=== PATIENT | female | born 1975 | race Caucasian/White ===

== ENCOUNTER → 2021-09-03 14:02 | Outpatient (CLI) | payer OTHER, SELFPAY ==
[2021-09-03 16:24] LABS: Probe Check PASS; Specimen Processing Control PASS
== END ==
PROVIDERS: Referring Provider Student in an Organized Health Care Education/Training Program; Visit Provider Student in an Organized Health Care Education/Training Program
DX: Z11.59 Encounter for screening for other viral diseases (principal)
CPT/HCPCS: 87635; C9803; U0005; U0003

== ENCOUNTER 2023-08-09 15:41 | Observation (INO) | payer OTHER, SELFPAY ==
[2023-08-09] VITALS (7 sets, daily range): BP systolic 111–130; BP diastolic 84–94; PULSE 55–67; RESP 11–18; TEMP 36.4–36.7; O2SAT 94–100; BMI 19.6; BMI 19.8
--- NOTE | 2023-08-09 15:46 | EKG12_ITS ---
Test Reason : CP Blood Pressure : / mmHG Vent. Rate : 052 BPM Atrial Rate : 052 BPM P-R Int : 200 ms QRS Dur : 084 ms QT Int : 444 ms P-R-T Axes : 061 -03 016 degrees QTc Int : 412 ms Sinus bradycardia Possible Left atrial enlargement Borderline ECG Confirmed by NIRMALA RUSHING, ROLANDO ([id number]), manuscript editor ARNAUD AUSTIN ([id number]) on 08/18/2023 10:01:48 AM Referred By: AR/RU Confirmed By:ROLANDO SILVESTRE MD
--- NOTE | 2023-08-09 16:00 | RAD_ITS ---
STUDY: X-RAY CHEST REASON FOR EXAM: Female, 48 years old. chest pain TECHNIQUE: Single frontal view of the chest. COMPARISON: None. FINDINGS: Lungs are hyperaerated. Calcified granuloma left lower lobe. The lungs are clear and expanded. There is no demonstrated pleural abnormality. Normal size heart. Normal mediastinum and lala. Normal visualized pulmonary arteries. Normal visualized aortic arch and descending thoracic aorta. Normal visualized thoracic spine. Normal visualized ribs, clavicles, and shoulders. There is no demonstrated abnormality of the visualized soft tissue structures of the upper abdomen. RAD/Chest 1 View (Portable) IMPRESSION: Small airways disease. Electronically Signed: Hermes Dunn MD at 16:47 EST ,
--- NOTE | 2023-08-09 16:03 | EDS_ITS ---
HPI History of Present Illness Chief Complaint: Chest Pain Detail of Chief Complaint: Chest pain Informant: patient and spouse/S.O. Narrative Narrative: Patient presents the emergency department with complaint of chest discomfort that started around 2 PM. 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 Pain initially was intermittent and would last a few minutes at a time. She then had an episode that lasted about 40 minutes and she came in for evaluation. She is currently pain-free. She is never had discomfort like this before. She denies recent travel or surgery. She has no medical history. There is no family history of heart disease. She does not smoke. Denies illicit drug use. Patient denies recent illness. [facility] Medical History (Updated 08/09/23 @ 17:[address] Opal Ellison, DO) Breast cancer Home Medications NK 08/09/23 [History Last Taken Unknown] Allergy/AdvReac Type Severity Reaction Status Date / Time No Known Allergies Allergy Verified 08/09/23 15:44 Surgical History (Updated 08/09/23 @ 16:07 by Radha Desai) History of right mastectomy Social History Smoking Status: Never smoker ROS ROS ED Review of Systems ROS Unobtainable: other Constitutional Constitutional ED: Reports lethargy; Denies chills, fever(s), sweats or weight loss Eyes Eyes: Denies blurry vision, change in vision or diplopia ENT ENT ED: Denies rhinorrhea or sore throat Cardiovascular Cardiovascular: Reports chest pain; Denies orthopnea or racing heartbeat Respiratory/Chest Respiratory/Chest: Denies cough, dyspnea, dyspnea on exertion, orthopnea or sputum Gastrointestinal Gastrointestinal: Denies abdominal pain, diarrhea, nausea or vomiting Genitourinary Genitourinary ED: Denies dysuria, hematuria or urinary frequency Musculoskeletal Musculoskeletal: Denies arthralgias, back pain, myalgias or neck pain Integumentary Denies abscess, Abrasions or rash Neurologic Neurologic: Denies headache(s) or weakness Psychiatric Psychiatric: Denies anxiety, depression or suicidal thoughts Endocrine Endocrinology: Denies polydipsia, polyphagia or polyuria Hematologic/Lymphatic Hematologic/Lymphatic: Denies easy bleeding, easy bruising or lymphadenopathy Allergic/Immunologic Allergic/Immunologic ED: Denies mouth swelling, tongue swelling or urticaria EXAM Physical Exam Const Vital Signs: 08/09/23 15:44 Temperature 97.6 F L Temperature Source Temporal Pulse Rate 58 L Respiratory Rate 18 Blood Pressure 111/84 H Blood Pressure Mean 93 Pulse Ox 100 Oxygen Delivery Method Room Air Positive well nourished and well developed General Appearance ED: well developed and NAD HEENT Reports TM's clear and moist mucous membranes normocephalic and atraumatic; Negative for trauma or tenderness Tympanic Membrane ED: Yes TM's clear Eyes PERRL and EOMs intact bilaterally General Eye ED: Negative for pale conjunctiva or scleral icterus Neck no lymphadenopathy, supple and no JVD General: Negative for tenderness Chest Wall inspection of chest normal and palpation of chest normal Chest: Negative for tenderness Resp normal respiratory effort and clear to auscultation bilaterally Effort and Inspection: Negative for respiratory distress or pain with movement Auscultation: Negative for rhonchi, wheezes or diminished lung sounds Cardio regular rate, regular rhythm, S1 normal heart sound, S2 normal heart sound and no murmurs Peripheral Pulses: pulses 2+ throughout GI normal to inspection, nondistended, normoactive bowel sounds, soft to palpation, non-tender, non-distended and no masses Back/Spine no CVA tenderness and no thoracic nor lumbar tenderness Extremity normal to inspection General Extremety ED: Negative for edema General Extremity: Negative for edema Neuro oriented x3, CN's II-XII intact bilaterally, no sensory deficits noted and gait normal Sensorium / Orientation: awake, alert, oriented to person, oriented to place and oriented to time Motor Exam: strength 5/5 throughout and strength abnormal Psych mental status grossly normal Skin no rashes or lesions noted and no wounds Heart Score History: Moderately Suspicious ECG: Nonspecific Repolarization Age: >45 - <65 years Risk Factors: No Risk Factors Troponin: >1 - <3 Normal Limit Score: 4 MDM MDM MDM Narrative Medical decision making narrative: Patient presenting with chest pain that is now resolved. In the differential would be PE versus acute coronary syndrome versus chest wall pain or GI cause such as GERD. IV line established. EKG obtained arrival showed sinus bradycardia with a rate of 52 bpm with left atrial enlargement. CBC with differential was unremarkable. Chemistries unremarkable. Troponin was elevated at 169. Patient had taken aspirin at home therefore none was given here. Patient states she took 4 baby aspirin at home. Patient was started on a heparin drip. Case will be discussed with hospitalist to evaluate patient for admission. Radiography Diagnostic Testin view chest x-ray obtained interpreted by myself as no evidence of a infiltrate or pneumothorax or acute disease process. Radiology in agreement. EKG Initial EKG: Attestation: I personally reviewed and interpreted this EKG as follows: Comments: Sinus bradycardia with a rate of 52 bpm with left atrial enlargement Discharge Plan Triage Chief Complaint: Chest Pain ED Provider: Opal Ellison Dx/Rx/DC Orders Clinical Impression: Non-ST elevated myocardial infarction (non-STEMI), Chest pain Prescriptions: No Action NK Primary Care Provider: Mouna Hooks Referrals: Mouna Hooks MD [Primary Care Provider] - Disposition Disposition: Acute Care Hospital [facility]
[2023-08-09] MEDS: 0.9% Normal Saline (1000mL) 1,000 ML 150 ML IV (16:18)
[2023-08-09 16:24] LABS: Absolute Lymphocyte Count 1.55 X10^3/uL (0.83-4.51); Absolute Neutrophil Count 3.9 X10^3/uL (2.0-7.7); Basophil# 0.02 X10^3/uL; Basophil% 0.3 % (0-1); Eosinophil# 0.11 X10^3/uL; Eosinophils% 1.8 % (0-5); Hematocrit 39.9 % (37-47); Lymphocyte # 1.55 X10^3/ul (0.83-4.51); Mean Corp Hgb Conc 32.6 g/dL (32-36); Mean Corpuscular Hgb 31.1 pg (27.0-32.0); Mean Corpuscular Volume 95.5 fL (81-99); Mean Platelet Vol. 10.1 fl (6.2-12.0); Monocyte# 0.34 X10^3/uL; Monocyte% 5.7 % (0-10); NRBC Flagged by Analyzer 0 % (0-5); Neutrophil # 3.93 X10^3/uL (2.7-7.7); Neutrophil % 65.9 % (47-70); Platelet Count 217 K/mm3 (150-450); RBC Distribution Width CV 13.6 % (11.6-14.6); RBC Distribution Width SD 48.4 fl (35.1-43.9); Red Blood Count 4.18 M/mm3 (4.2-5.4)
[2023-08-09 16:37] LABS: D-Dimer Quantitative (DVT/PE) 0.42 FEU/ug/m (0.27-0.49)
[2023-08-09 16:52] LABS: Anion Gap 7 (5-15); BUN 23 mg/dL (7-18); BUN/Creat Ratio 28.4 RATIO (10-20); Calcium,Total 9.2 mg/dL (8.5-10.1); Chloride 105 mmol/L (98-107); Creatinine, Serum 0.81 mg/dL (0.55-1.02); EST Glomerular Filtration Rate 79 mL/min (>60); Est Glom Filt Rate - Afr Amer 96 mL/min (>60); Estimated Creatinine Clearance 72.53 ml/min; Glucose 142 mg/dL (74-106); Potassium 3.7 mmol/L (3.5-5.1); Sodium Level 141 mmol/L (136-145); Troponin-I HS (w/2H Reflex) 169 pg/mL (3.0-54.0)
--- NOTE | 2023-08-09 17:11 | PCM.HP.STD ---
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 She denies having any episodes similar to this previously. Patient does admit to notably recent increased stress. She notes that the discomfort was more heaviness, pressure-like in sensation as well as aching and at its worst rated it 7 out of 10 in severity, currently completely resolved. She denies any associated dyspnea, nausea, diaphoresis with this episode. Work-up in the ED included T97.6, heart rate initially 58 with most recent repeat 61, BP 111/84, respiratory rate 18, 100% on room air, CBC with WBC 6.0, hemoglobin 13, platelet 217 without marked shift, D-dimer 0.42, BMP with BUN/creatinine 23/0.81, glucose 142, troponin 169, chest x-ray with evidence of chronic small airway disease otherwise no acute cardiopulmonary findings, EKG with sinus bradycardia with no acute evidence of ischemia. In the ED patient ministered normal saline as well as heparin drip. She noted taking 4 chewable baby aspirins at home. [facility] Medical History (Updated 08/09/23 @ 19:[address] Erica Gonzalez MD) Invasive ductal carcinoma of right breast Home Medications NK 08/09/23 [History Last Taken Unknown] Allergy/AdvReac Type Severity Reaction Status Date / Time No Known Allergies Allergy Verified 08/09/23 15:44 Family History (Updated 08/09/23 @ 19:[address] Erica Gonzalez MD) Mother Hypertension Father Heart disease Hypertension Diabetes Heart failure Family History no significant family his Surgical History (Updated 08/09/23 @ 19:[address] Erica Gonzalez MD) History of right mastectomy Status post bilateral foot surgery Social History (Updated 08/09/23 @ 19:[address] Erica Gonzalez MD) household members: spouse Smoking Status: Never smoker alcohol intake: never substance use type: does not use ROS ROS Narrative Admission Review of Systems: CONSTITUTIONAL: No weight loss, fever, chills, + weakness or fatigue. HEENT: Eyes: No visual loss, blurred vision, double vision or yellow sclerae. Ears, Nose, Throat: No hearing loss, sneezing, congestion, runny nose or sore throat. SKIN: No rash or itching, lesions, wounds. CARDIOVASCULAR: No + chest pain, chest pressure or chest discomfort. No palpitations, edema, orthopnea, syncopal events. RESPIRATORY: No shortness of breath, cough or sputum, wheezing, hemoptysis. GASTROINTESTINAL: No anorexia, nausea, vomiting or diarrhea, abdominal pain, melena, BRBPR. GENITOURINARY: No dysuria, frequency, urgency or retention. NEUROLOGICAL: No headache, dizziness, syncope, paralysis, ataxia, numbness or tingling in the extremities, focal weakness, change in bowel or bladder control, seizure. MUSCULOSKELETAL: + muscle, back pain, joint pain or stiffness. HEMATOLOGIC: No anemia, bleeding or bruising. LYMPHATICS: No enlarged nodes. No history of splenectomy. PSYCHIATRIC: No history of depression or anxiety. ENDOCRINOLOGIC: No reports of sweating, cold or heat intolerance. No polyuria or polydipsia. ALLERGIES: No history of asthma, hives, eczema or rhinitis. Vital Signs Vital Signs Vital Signs: 08/09/23 15:44 08/09/23 16:05 08/09/23 16:05 Temperature 97.6 F L Temperature Source Temporal Pulse Rate 58 L Respiratory Rate 18 Respiratory Effort Blood Pressure 111/84 H Blood Pressure Mean 93 Pulse Ox 100 100 100 Oxygen Delivery Method Room Air Room Air Room Air 08/09/23 16:06 08/09/23 16:08 Temperature Temperature Source Pulse Rate 61 Respiratory Rate 11 L Respiratory Effort Normal Non-Labored Blood Pressure Blood Pressure Mean Pulse Ox 100 Oxygen Delivery Method Room Air Weight Weight: 121 lb 14.4 oz Body Mass Index (BMI) 19.6 Physical Exam Narrative Physical Examination: General: Awake, alert, oriented x 3 and cooperative, seated upright in the ED bed in no apparent distress, tearful with discussions but otherwise calm. Skin: Normal color, normal turgor, no icterus, no cyanosis. HEENT: AT/NC, EOMI, PERRLA, MMM, no carotid bruits or JVD noted. Lungs: CTA bilaterally, moderate effort, mild decrease BL bases, no rales, ronchi or wheezing. Heart: Mildly bradycardic with regular rhythm; no gallop, rub audible. Abdomen: Soft, NTTP, ND, distant normal BS, no HSM. Extremities: No cyanosis, clubbing, or edema. Neurological: Patient awake, alert, oriented as noted, cognitive function intact; pupils equally reactive to light and accommodation, cranial nerves II-XII grossly normal, moving all 4 extremities, no focal deficits, strength preserved. Psychiatric: Affect appears mildly anxious, tearful with discussions but appropriate, no history of anxiety or depression but she has been under a lot of stress. Results Lab / Micro Data 08/09/23 16:09 08/09/23 16:09 Labs: Laboratory Results - last 24 hr 08/09/23 16:09: WBC 6.0, RBC 4.18 L, Hgb 13.0, Hct 39.9, MCV 95.5, MCH 31.1, MCHC 32.6, RDW Std Deviation 48.4 H, RDW Coeff of Ken 13.6, Plt Count 217, MPV 10.1, Immature Gran % (Auto) 0.300, Neut % (Auto) 65.9, Lymph % (Auto) 26.0, [place] % (Auto) 5.7, Eos % (Auto) 1.8, Baso % (Auto) 0.3, Absolute Neuts (auto) 3.9, Absolute Lymphs (auto) 1.55, Nucleated RBC % 0, D-Dimer Quant (PE/DVT) 0.42, Sodium 141, Potassium 3.7, Chloride 105, Carbon Dioxide 29.0, Anion Gap 7, BUN 23 H, Creatinine 0.81, Estim Creat Clear Calc 72.53, Est GFR (MDRD) Af Amer 96, Est GFR (MDRD) Non-Af 79, BUN/Creatinine Ratio 28.4 H, Glucose 142 H, Calcium 9.2, Troponin I High Sens 169 H* Radiology Impression Chest X-Ray 08/09/23 16:00 IMPRESSION: Small airways disease. 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 #1. Chest Pain w/ acutely elevated troponin concerning for NSTEMI, unclear type: EKG in ED w/ sinus bradycardia with no acute evidence of ischemia, CXR w/ no acute cardiopulmonary findings with chronic changes of small airway disease. Trop elevated, 169. Will admit to PCU, maintain on a monitored bed, continue serial cardiac enzymes and EKGs. Obtain magnesium level upon admission. We will continue heparin drip. AM FLP. ECHO requested. Cardiology consulted, plan for cardiac catheterization. Maintain NPO after midnight. ASA, NG, morphine. #2. Hyperglycemia, mild: Admission glucose 142, likely stress response, will obtain hemoglobin A1c be cautious. #3. Elevated BP without hypertensive diagnosis: Patient with elevated diastolic blood pressure, no history, will continue closely monitor, add regimen if appropriate especially given #1. #4. History of breast cancer, invasive ductal carcinoma: Diagnosed 07/2020, status post chemotherapy as well as right mastectomy, considered in remission, of note to be cautious dimer was obtained in the ED and unremarkable. #5. DVT prophylaxis: We will continue heparin drip initiated in the ED. Charges/Coding Visit Charges Inpatient E&M: 42282 Init Hosp L3
[2023-08-09] MEDS: Heparin Injection (Vial) 5,000 UNIT/ML VIAL 4000 UNIT IV (17:14)
[2023-08-09] MEDS: HEPARIN/D5w 25,000 UNITS 25,000 UNITS/250 ML IV.SOLN. 8 UNITS CONT INF (17:16)
[2023-08-09 17:27] LABS: Partial Thromboplast Time 24.9 Seconds (24.1-36.2); Prothrombin Time (Protime)PT. 13.1 SECONDS (11.7-14.9)
--- NOTE | 2023-08-09 17:35 | ED.RN ---
PRIOR TO PT BEING TAKEN TO FLOOR. PT HEPARIN INFUSING AT 8ML/HR. IV PATENT/PINK. NO S/S OF INFILTRATION. PT DENIES PAIN AT IV SITE.
--- NOTE | 2023-08-09 17:56 | EKG12_ITS ---
Test Reason : AM EKG Blood Pressure : / mmHG Vent. Rate : 056 BPM Atrial Rate : 056 BPM P-R Int : 200 ms QRS Dur : 092 ms QT Int : 462 ms P-R-T Axes : 070 016 -52 degrees QTc Int : 445 ms Sinus bradycardia Minimal voltage criteria for LVH, may be normal variant ( Bogdan product ) T wave abnormality, consider inferolateral ischemia Abnormal ECG When compared with ECG of 09-AUG-2023 17:58, MANUAL COMPARISON REQUIRED, DATA IS UNCONFIRMED Confirmed by NIRMALA RUSHING, ROLANDO ([id number]), publishing editor ARNAUD AUSTIN ([id number]) on 08/18/2023 1:06:16 PM Referred By: Confirmed By:ROLANDO SILVESTRE MD
--- NOTE | 2023-08-09 17:56 | ECHOD_ITS ---
Reason For Study: CAD/ASHD Procedure This was a 2D Doppler, Color Flow transthoracic echocardiogram. The study was technically difficult. Exam performed portable in patient room. Left Ventricle Normal left ventricle. The estimated ejection fraction is 40-45 %. Right Ventricle Normal right ventricle. The right ventricle is normal in size, function, and thickness. Atria Normal left atrium. Normal right atrium. Mitral Valve The mitral valve is structurally normal. No prolapse or stenosis seen. No mitral valve insufficiency. Tricuspid Valve Normal tricuspid valve. Aortic Valve Normal aortic valve. Trivial aortic valve insufficiency. Pulmonic Valve The pulmonic valve is not well visualized. Great Vessels Normal aortic root. Pericardium/Pleural No pericardial effusion. MMode/2D Measurements & Calculations LVIDd: 4.7 cm IVSd: 0.81 cm Ao root diam: 3.0 cm LVIDs: 3.2 cm LVPWd: 0.81 cm LA dimension: 3.2 cm FS: 32.6 % LAV(MOD-bp): 46.2 ml LVAd ap4: 29.8 cm2 SV(MOD-sp4): 44.3 ml LAV(MOD-bp) Indexed: 28.4 ml/m2 LVLd ap4: 7.6 cm LAV(MOD-sp2): 40.8 ml EDV(MOD-sp4): 97.5 ml LAV(MOD-sp4): 52.6 ml EDV(sp4-el): 99.2 ml LVAs ap4: 20.5 cm2 LVLs ap4: 6.5 cm ESV(MOD-sp4): 53.2 ml ESV(sp4-el): 54.9 ml EF(MOD-sp4): 45.5 % EF(sp4-el): 44.6 % SV(sp4-el): 44.3 ml LA A4 area: 18.7 cm2 Time Measurements MV dec time: 0.20 sec Doppler Measurements & Calculations MV E max daren: 70.0 cm/sec Lat Peak E' Daren: 9.9 cm/sec Med Peak E' Daren: 9.4 cm/sec MV A max daren: 89.1 cm/sec E/E' lat: 7.1 E/E' med: 7.5 MV E/A: 0.79 MV V2 max: 108.1 cm/sec MV P1/2t max daren: 89.8 cm/sec Ao V2 max: 136.7 cm/sec MV max P.7 mmHg MV P1/2t: 78.6 msec Ao max P.5 mmHg MV V2 mean: 54.9 cm/sec MV mean P.5 mmHg MV dec slope: 334.6 cm/sec2 MV V2 VTI: 27.7 cm MVA(P1/2t): 2.8 cm2 LV V1 max: 115.4 cm/sec PA V2 max: 73.2 cm/sec TR max daren: 216.5 cm/sec LV V1 max P.3 mmHg TR max P.8 mmHg ECHO/Echo Complete Interpretation Summary The estimated ejection fraction is 40-45 %. Apicaaal Hypokinesia No prior echp tp compare Ordering Physician: Erica Gonzalez Performed By: Deny Elmore RCS
[2023-08-09 18:17] LABS: Reflex Troponin-HS? (from REC) Y
[2023-08-09 19:14] LABS: Troponin-I HS 1868 pg/mL (3.0-54.0)
[2023-08-09 19:29] LABS: Magnesium 2.5 mg/dL (1.6-2.6)
[2023-08-09] MEDS: 0.9% Normal Saline (1000mL) 1,000 ML 100 ML IV (20:28)
[2023-08-09] MEDS: Atorvastatin Calcium 80 MG Tablet PO (20:41)
[2023-08-09 23:34] LABS: Partial Thromboplast Time 61.5 Seconds (24.1-36.2)
[2023-08-09 23:59] LABS: Troponin-I HS 4643 pg/mL (3.0-54.0)
[2023-08-10] VITALS (17 sets, daily range): BP systolic 101–126; BP diastolic 65–91; PULSE 56–69; RESP 15–21; TEMP 36.7; O2SAT 94–99; BMI 21.4
--- NOTE | 2023-08-10 00:04 | EKG12_ITS ---
Test Reason : CP ADMIN Blood Pressure : / mmHG Vent. Rate : 058 BPM Atrial Rate : 058 BPM P-R Int : 198 ms QRS Dur : 082 ms QT Int : 434 ms P-R-T Axes : 070 026 029 degrees QTc Int : 426 ms Sinus bradycardia Otherwise normal ECG When compared with ECG of 09-AUG-2023 15:50, MANUAL COMPARISON REQUIRED, DATA IS UNCONFIRMED Confirmed by NIRMALA RUSHING, ROLANDO ([id number]), social media editor ARNAUD AUSTIN ([id number]) on 08/18/2023 1:06:45 PM Referred By: Confirmed By:ROLANDO SILVESTRE MD
[2023-08-10 05:16] LABS: Absolute Lymphocyte Count 1.75 X10^3/uL (0.83-4.51); Absolute Neutrophil Count 2.8 X10^3/uL (2.0-7.7); Basophil# 0.02 X10^3/uL; Basophil% 0.4 % (0-1); Eosinophil# 0.18 X10^3/uL; Eosinophils% 3.6 % (0-5); Hematocrit 37.1 % (37-47); Hemoglobin 12.1 g/dL (12.0-15.0); Lymphocyte # 1.75 X10^3/ul (0.83-4.51); Lymphocyte % 34.5 % (19-41); Mean Corp Hgb Conc 32.6 g/dL (32-36); Mean Corpuscular Hgb 31.8 pg (27.0-32.0); Mean Corpuscular Volume 97.4 fL (81-99); Monocyte# 0.35 X10^3/uL; Monocyte% 6.9 % (0-10); NRBC Flagged by Analyzer 0 % (0-5); Neutrophil # 2.76 X10^3/uL (2.7-7.7); Neutrophil % 54.4 % (47-70); Platelet Count 176 K/mm3 (150-450); RBC Distribution Width CV 13.7 % (11.6-14.6); RBC Distribution Width SD 49.2 fl (35.1-43.9); Red Blood Count 3.81 M/mm3 (4.2-5.4); White Blood Count 5.1 K/mm3 (4.4-11.0)
[2023-08-10 05:29] LABS: Partial Thromboplast Time 57.8 Seconds (24.1-36.2)
[2023-08-10 05:52] LABS: ALB/GLOB Ratio 1.1 RATIO (0.9-2.4); AST(SGOT) 38 U/L (15-37); Alanine Aminotransfer ALT/SGPT 33 U/L (13-56); Albumin, Serum 3.1 g/dL (3.2-5.0); Alkaline Phosphatase 80 U/L (45-117); Anion Gap 5 (5-15); BUN 15 mg/dL (7-18); BUN/Creat Ratio 23.5 RATIO (10-20); Calcium,Total 8.1 mg/dL (8.5-10.1); Chloride 111 mmol/L (98-107); Cholesterol 195 mg/dL (200); Creatinine, Serum 0.64 mg/dL (0.55-1.02); EST Glomerular Filtration Rate 105 mL/min (>60); Est Glom Filt Rate - Afr Amer 127 mL/min (>60); Globulin 2.9 g/dL (2.2-4.2); Glucose 91 mg/dL (74-106); High Density Lipoprotein 123 mg/dL; Potassium 3.9 mmol/L (3.5-5.1); Sodium Level 142 mmol/L (136-145); Triglycerides 33 mg/dL; Very Low Density Lipoprotein 7 mg/dL (5-40)
[2023-08-10] MEDS: 0.9% Normal Saline (1000mL) 1,000 ML 100 ML IV (06:21)
[2023-08-10] MEDS: Aspirin E.C. 81 MG Tablet PO (06:39)
[2023-08-10 08:22] LABS: Hemoglobin A1c 5.5 % (3.8-5.6)
--- NOTE | 2023-08-10 08:36 | PCM.PN.HOSP ---
Reason for Visit Reason for Visit: Diagnoses Non-ST elevation (NSTEMI) myocardial infarction (08/09/23) Chest pain, unspecified (08/09/23) Subjective Subjective At present no complaints, feeling better than she did on presentation Objective Data Objective Data Vital Signs: Vital Signs Temp Pulse Resp BP Pulse Ox O2 Del Method 98.1 F 57 L 16 116/90 H 98 Room Air 08/10/23 06:25 08/10/23 06:25 08/10/23 06:25 08/10/23 06:25 08/10/23 06:25 08/10/23 06:28 Oxygen Delivery Method Room Air Weight: 60.2 kg Body Mass Index (BMI) 21.4 Intake & Output: Intake and Output for Last 24 Hours 08/08/23 08/09/23 08/10/23 23:59 23:59 23:59 Intake Total 440 / 440 988.33 / 988.33 Balance 440 / 440 988.33 / 988.33 Lab / Micro Data 08/10/23 05:00 08/10/23 05:00 Labs: Laboratory Results - last 24 hr 08/09/23 16:09: WBC 6.0, RBC 4.18 L, Hgb 13.0, Hct 39.9, MCV 95.5, MCH 31.1, MCHC 32.6, RDW Std Deviation 48.4 H, RDW Coeff of Ken 13.6, Plt Count 217, MPV 10.1, Immature Gran % (Auto) 0.300, Neut % (Auto) 65.9, Lymph % (Auto) 26.0, [place] % (Auto) 5.7, Eos % (Auto) 1.8, Baso % (Auto) 0.3, Absolute Neuts (auto) 3.9, Absolute Lymphs (auto) 1.55, Nucleated RBC % 0, PT 13.1, INR 1.0, APTT 24.9, D-Dimer Quant (PE/DVT) 0.42, Sodium 141, Potassium 3.7, Chloride 105, Carbon Dioxide 29.0, Anion Gap 7, BUN 23 H, Creatinine 0.81, Estim Creat Clear Calc 72.53, Est GFR (MDRD) Af Amer 96, Est GFR (MDRD) Non-Af 79, BUN/Creatinine Ratio 28.4 H, Glucose 142 H, Calcium 9.2, Magnesium 2.5, Troponin I High Sens 169 H* 08/09/23 18:23: Troponin I High Sens 1868 H* 08/09/23 22:57: APTT 61.5 H, Troponin I High Sens 4643 H* 08/10/23 05:00: WBC 5.1, RBC 3.81 L, Hgb 12.1, Hct 37.1, MCV 97.4, MCH 31.8, MCHC 32.6, RDW Std Deviation 49.2 H, RDW Coeff of Ken 13.7, Plt Count 176, MPV 10.0, Immature Gran % (Auto) 0.200, Neut % (Auto) 54.4, Lymph % (Auto) 34.5, [place] % (Auto) 6.9, Eos % (Auto) 3.6, Baso % (Auto) 0.4, Absolute Neuts (auto) 2.8, Absolute Lymphs (auto) 1.75, Nucleated RBC % 0, APTT 57.8 H, Sodium 142, Potassium 3.9, Chloride 111 H, Carbon Dioxide 26.0, Anion Gap 5, BUN 15, Creatinine 0.64, Estim Creat Clear Calc 92.80, Est GFR (MDRD) Af Amer 127, Est GFR (MDRD) Non-Af 105, BUN/Creatinine Ratio 23.5 H, Glucose 91, Hemoglobin A1c 5.5, Calcium 8.1 L, Total Bilirubin 0.70, AST 38 H, ALT 33, Alkaline Phosphatase 80, Total Protein 6.0 L, Albumin 3.1 L, Globulin 2.9, Albumin/Globulin Ratio 1.1, Triglycerides 33, Cholesterol 195, LDL Cholesterol 65, VLDL Cholesterol 7, HDL Cholesterol 123 Radiography Diagnostic Testing: Radiology Impression Chest X-Ray 08/09/23 16:00 IMPRESSION: Small airways disease. Electronically Signed: Hermes Dunn MD at 16:47 EST , Physical Exam Narrative General: Alert, oriented, no apparent distress HEENT: Atraumatic, normocephalic Eyes: Anicteric, normal conjunctiva, extraocular movements grossly intact Neck: Supple Respiratory: Clear to auscultation bilaterally, normal respiratory effort Cardiovascular: Regular rate and rhythm GI: Soft, nontender, nondistended Extremities: No edema Musculoskeletal: Moving all extremities Neuro: No overt focal neurological deficits Skin: No rashes appreciated Psych: Cooperative Assessment & Plan Assessment/Plan (1) Non-ST elevated myocardial infarction (non-STEMI): (2) Chest pain: PLAN: Plan #NSTEMI -Unclear type I versus type II -Had chest pain with troponin of 169 up trended to 4643 -Heparin drip, n.p.o., cardiology consult -echo -08/10: Not having chest pain at present, patient for cath today, continue n.p.o. on heparin drip #History of breast cancer invasive ductal carcinoma status postchemotherapy and right mastectomy -Diagnosed 07/2020, status post chemotherapy as well as right mastectomy, considered in remission, of note to be cautious dimer was obtained in the ED and unremarkable #DVT ppx: Heparin drip Britney Man MD Time spent in the patient's overall evaluation,decision-making process, review of diagnostic data, adjustment of management, discussion with other providers, nursing nursing and ancillary staff involved in patient's care documentation, 25 minutes Charges/Coding Visit Charges Inpatient E&M: 24966 [facility] Hosp L1
[2023-08-10 11:04] LABS: Partial Thromboplast Time 55.2 Seconds (24.1-36.2)
--- NOTE | 2023-08-10 11:56 | CON.PCM.CA_ITS ---
<Statement entered by Doe Sarah MD - 08/10/23 17:18> Pt seen & evaluated w/[facility]. I personally interviewed & exam the pt. I was involved in all aspects of pt's orders, interpretation of results & treatment Assessment & Plan Assessment/Plan (1) Non-ST elevated myocardial infarction (non-STEMI): (2) Chest pain: PLAN: Plan * echocardiogram preliminary is 45%. * Will proceed with heart cath, based on findings will optimize medications. HPI Consult Data Date of Consult: 08/10/23 HPI Narrative HPI Narrative: TIFFANI WORTHY, is a 48 F who presented to [facility] ER yesterday for CP. 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 CP subsided once presenting to ER. Troponins trended 169/1868/4643. She was admitted to PCU with plans for a heart cath. She does have a past medical hx of Breast CA (Invasive ductal carcinoma) s/p chemotherapy and R mastectomy (2020). She does admit that her chemotherapy was adjusted d/t a decrease in her EF, she thinks it was 45%. She was not on any medications for this. [facility] Medical History (Updated 08/09/23 @ 19:[address] Erica Gonzalez MD) Invasive ductal carcinoma of right breast Home Medications NK 08/09/23 [History Last Taken Unknown] Allergy/AdvReac Type Severity Reaction Status Date / Time No Known Allergies Allergy Verified 08/09/23 15:44 Family History (Updated 08/09/23 @ 19:[address] Erica Gonzalez MD) Mother Hypertension Father Heart disease Hypertension Diabetes Heart failure Family History no significant family his Surgical History (Updated 08/09/23 @ 19:[address] Erica Gonzalez MD) History of right mastectomy Status post bilateral foot surgery Social History (Updated 08/09/23 @ 19:[address] Erica Gonzalez MD) household members: spouse Smoking Status: Never smoker alcohol intake: never substance use type: does not use ROS Constitutional Constitutional: Denies fatigue, frequent falls or lethargy Eyes Eyes: Denies acute decrease in peripheral vision, blurry vision or change in vision ENT HEENT: Denies dizziness, dry mouth, epistaxis, headache(s), tinnitus or vertigo Cardiovascular Cardiovascular: Reports as per HPI; Denies claudication, dyspnea at rest, dyspnea on exertion, edema, irregular heart rhythm, lightheadedness, orthopnea, orthostatic symptoms, palpitations or pedal edema Respiratory/Chest Respiratory/Chest: Denies cough or wheezing Gastrointestinal Gastrointestinal: Denies abdominal pain, bloating, coffee ground emesis, diarrhea, heartburn, melena or nausea Genitourinary Genitourinary: Denies hematuria Musculoskeletal Musculoskeletal: Denies myalgias, numbness or tingling Neurologic Neurologic: Denies abnormal gait, abnormal speech, memory loss, paresthesias or weakness Physical Exam Const alert, oriented x3, no apparent distress and healthy appearing HEENT normocephalic, head/scalp atraumatic, hearing grossly normal bilaterally, external ears normal, external nose normal and moist oral mucous membranes Eyes PERRL, EOMs intact bilaterally, conjunctivae normal and no scleral icterus Neck no lymphadenopathy, supple and no JVD Resp clear to auscultation bilaterally Cardio regular rate, regular rhythm, S1 normal heart sound, S2 normal heart sound, no m urmurs, no rub, no gallops, no clicks, no JVD and peripheral pulses 2+ throughout GI normal to inspection, nondistended, normoactive bowel sounds, soft to palpation, non-tender and non-distended Extremity normal to inspection, normal capillary refill, no clubbing, cyanosis or edema and no pedal edema Neuro oriented x3, CN's II-XII intact bilaterally, moves all extremities and no focal motor deficits Psych cooperative and affect normal Risk Stratification Risk Stratification Applicable: Yes Age >/= 65: No >/= 3 CAD Risk Factors (HTN, HLD, DM, family hx of CAD, or current smoker): No Aspirin Use in the Past 7 Days: No Severe Angina (>/= episodes in 24 hours): Yes EKG ST Changes >/= 0.5mm: No Positive Cardiac Marker: Yes LUBA Risk Stratification Score: 2 LUBA % Risk: 8% Risk Charges/Coding Visit Charges Office Visits / Consults: 99596 IP Consult L4 Objective Data Vital Signs: Vital Signs Temp Pulse Resp BP Pulse Ox O2 Del Method 98.1 F 57 L 16 116/90 H 96 Room Air 08/10/23 06:25 08/10/23 06:25 08/10/23 06:25 08/10/23 06:25 08/10/23 07:38 08/10/23 09:25 Oxygen Delivery Method Room Air Weight: 132 lb 11.492 oz Body Mass Index (BMI) 21.4 Intake & Output: Intake and Output for Last 24 Hours 08/08/23 08/09/23 08/10/23 23:59 23:59 23:59 Intake Total 440 / 440 1128.20 / 1128.20 Balance 440 / 440 1128.20 / 1128.20 Lab / Micro Data 08/10/23 05:00 08/10/23 05:00 Labs: Laboratory Results - last 24 hr 08/09/23 16:09: WBC 6.0, RBC 4.18 L, Hgb 13.0, Hct 39.9, MCV 95.5, MCH 31.1, MCHC 32.6, RDW Std Deviation 48.4 H, RDW Coeff of Ken 13.6, Plt Count 217, MPV 10.1, Immature Gran % (Auto) 0.300, Neut % (Auto) 65.9, Lymph % (Auto) 26.0, [place] % (Auto) 5.7, Eos % (Auto) 1.8, Baso % (Auto) 0.3, Absolute Neuts (auto) 3.9, Absolute Lymphs (auto) 1.55, Nucleated RBC % 0, PT 13.1, INR 1.0, APTT 24.9, D-Dimer Quant (PE/DVT) 0.42, Sodium 141, Potassium 3.7, Chloride 105, Carbon Dioxide 29.0, Anion Gap 7, BUN 23 H, Creatinine 0.81, Estim Creat Clear Calc 72.53, Est GFR (MDRD) Af Amer 96, Est GFR (MDRD) Non-Af 79, BUN/Creatinine Ratio 28.4 H, Glucose 142 H, Calcium 9.2, Magnesium 2.5, Troponin I High Sens 169 H* 08/09/23 18:23: Troponin I High Sens 1868 H* 08/09/23 22:57: APTT 61.5 H, Troponin I High Sens 4643 H* 08/10/23 05:00: WBC 5.1, RBC 3.81 L, Hgb 12.1, Hct 37.1, MCV 97.4, MCH 31.8, MCHC 32.6, RDW Std Deviation 49.2 H, RDW Coeff of Ken 13.7, Plt Count 176, MPV 10.0, Immature Gran % (Auto) 0.200, Neut % (Auto) 54.4, Lymph % (Auto) 34.5, [place] % (Auto) 6.9, Eos % (Auto) 3.6, Baso % (Auto) 0.4, Absolute Neuts (auto) 2.8, Absolute Lymphs (auto) 1.75, Nucleated RBC % 0, APTT 57.8 H, Sodium 142, Potassium 3.9, Chloride 111 H, Carbon Dioxide 26.0, Anion Gap 5, BUN 15, Creatinine 0.64, Estim Creat Clear Calc 92.80, Est GFR (MDRD) Af Amer 127, Est GFR (MDRD) Non-Af 105, BUN/Creatinine Ratio 23.5 H, Glucose 91, Hemoglobin A1c 5.5, Calcium 8.1 L, Total Bilirubin 0.70, AST 38 H, ALT 33, Alkaline Phosphatase 80, Total Protein 6.0 L, Albumin 3.1 L, Globulin 2.9, Albumin/Globulin Ratio 1.1, Triglycerides 33, Cholesterol 195, LDL Cholesterol 65, VLDL Cholesterol 7, HDL Cholesterol 123 08/10/23 10:45: APTT 55.2 H Cardiology Labs/Tests 08/09/23 16:09: WBC 6.0, RBC 4.18 L, Hgb 13.0, Hct 39.9, MCV 95.5, MCH 31.1, MCHC 32.6, Plt Count 217, MPV 10.1, Immature Gran % (Auto) 0.300, Neut % (Auto) 65.9, Lymph % (Auto) 26.0, [place] % (Auto) 5.7, Eos % (Auto) 1.8, Baso % (Auto) 0.3, Absolute Neuts (auto) 3.9, Nucleated RBC % 0, PT 13.1, INR 1.0, APTT 24.9, D-Dimer Quant (PE/DVT) 0.42, Sodium 141, Potassium 3.7, Chloride 105, Carbon Dioxide 29.0, Anion Gap 7, BUN 23 H, Creatinine 0.81, Est GFR (MDRD) Af Amer 96, Est GFR (MDRD) Non-Af 79, BUN/Creatinine Ratio 28.4 H, Glucose 142 H, Calcium 9.2, Magnesium 2.5 08/09/23 22:57: APTT 61.5 H 08/10/23 05:00: WBC 5.1, RBC 3.81 L, Hgb 12.1, Hct 37.1, MCV 97.4, MCH 31.8, MCHC 32.6, Plt Count 176, MPV 10.0, Immature Gran % (Auto) 0.200, Neut % (Auto) 54.4, Lymph % (Auto) 34.5, [place] % (Auto) 6.9, Eos % (Auto) 3.6, Baso % (Auto) 0.4, Absolute Neuts (auto) 2.8, Nucleated RBC % 0, APTT 57.8 H, Sodium 142, Potassium 3.9, Chloride 111 H, Carbon Dioxide 26.0, Anion Gap 5, BUN 15, Creatinine 0.64, Est GFR (MDRD) Af Amer 127, Est GFR (MDRD) Non-Af 105, BUN/Creatinine Ratio 23.5 H, Glucose 91, Hemoglobin A1c 5.5, Calcium 8.1 L, Total Bilirubin 0.70, Triglycerides 33, Cholesterol 195, LDL Cholesterol 65, VLDL Cholesterol 7, HDL Cholesterol 123 08/10/23 10:45: APTT 55.2 H Rhythm: NSR Radiography Diagnostic Testing: Radiology Impression Chest X-Ray 08/09/23 16:00 IMPRESSION: Small airways disease. Electronically Signed: Hermes Dunn MD at 16:47 EST , Echocardiogram 08/09/23 17:56 Interpretation Summary The estimated ejection fraction is 40-45 %. Apicaaal Hypokinesia No prior echp tp compare Ordering Physician: Erica Gonzalez Performed By: Deny Elmore RCS
--- NOTE | 2023-08-10 13:16 | PN_ITS ---
<Statement entered by Doe Sarah MD - 08/10/23 17:17> Pt seen & evaluated w/[facility]. I personally interviewed & exam the pt. I was involved in all aspects of pt's orders, interpretation of results & treatment Progress Note Pt underwent a heart cath. She had normal coronaries. Feel that this was a Takotsubo cardiomyopathy. With her decreased EF will start her on Coreg at 3.125 mg twice a day. Will plan on adding entresto on OP basis.
--- NOTE | 2023-08-10 13:25 | PCM.OP.PRO ---
Procedure Report Date of Procedure: 08/10/23 Procedure performed #1 moderate sedation 2. Selective left angiography 3. Selective right angiography 4. Measurement of LVEDP 5. The ventriculogram Preprocedure diagnosis 48-year-old patient who presented with symptoms of retrosternal chest pain With a clinical diagnosis of non-ST elevation AK She had elevation of cardiac biomarkers subsequently patient evaluated further by Echocardiogram which showed reduced LV systolic function ejection fraction the range of around 45% And underwent coronary angiography today. Consent; Risk and benefit of procedure explained detail to the patient she elected to proceed informed consent obtained. Diagnostic catheter used: 1. 5 Turkmen [place] catheter 2. 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 Right radial artery area prepped and draped in the usual sterile fashion 6 Turkmen sheath placed in the right radial artery Then we will proceed with a diagnostic catheter 5 Turkmen [place] [facility] the left main multiple views of the left coronary system were obtained Following this the same catheter was used to cannulate the RCA multiple views of the RCA obtained The catheter was exchanged for 5 Turkmen pigtail catheter and the ventricular obtained 30 degree projection LVEDP was measured as well as a pullback pressure Findings hemodynamics; LVEDP measuring around 22 mmHg elevated 2. Global LV hypokinesia/more apical hypokinesia With ejection fraction in the range of around 45% 3. No systolic gradient across aortic valve. 4. No mitral regurgitation noted. Coronary angiography; 1. Left main coronary artery is normal angiographically bifurcating into LAD and left circumflex 2. Left anterior descending is a large vessel reach all the way to the apex is more tortuous however there is no significant atherosclerosis noted of the left anterior descending artery #3 left circumflex artery is large normal angiographically 4. RCA large dominant and normal to graphically Conclusion this patient has global LV hypokinesia with reduced LV systolic function mildly She had a history of breast cancer with right mastectomy and she was treated before by chemotherapy and she did mention to me that she had reduced LV function before. However she did not have a treatment or follow-up by delivery representative From cardiac standpoint we will continue to monitor and follow-up clinically on medical therapy in the form of beta-gloria carvedilol, and low-dose Entresto as tolerated. I would recommend to reevaluate by echocardiogram in 3 months to assess response to medical treatment TR band applied to right radial artery area with no complication in the Fish Bait Processing Supervisor. Doe Sarah MD,FACC,[facility]
--- NOTE | 2023-08-10 13:30 | CASEMGMT ---
RN CM Face to Face with patient for initial transition planning/care coordination assessment. RN CM introduced self and role at [facility]. Patient lying in bed, alert and oriented, and family at bedside. Patient willing to participate in assessment and is able to answer all questions appropriately. Care providers, pharmacy, and demographics verified. Patient wishes to discharge home, denies need for home health at this time. Patient states she has no further needs or concerns at this time. CM to follow for discharge planning needs that may arise. PCP: [facility] Specialists: Michel, oncologist Paco Avendaño; Edson, Surgeon Paco Avendaño Preferred Pharmacy: [facility]; [facility] retail at Discharge. Insurance: MMO Prescription Benefit: yes Living Will/HPOA: none LNOK: Living Arrangements: Patient lives with in a 2 story home. Patient is independent and able to ambulate stairs. Transportation: self, DME/HHC: Patient has crutches at home. No previous HHC or SNF. Disposition Plan: Patient to discharge home with family support and follow-up plans in place. Letty KRAMER, RN, CM
[2023-08-10] MEDS: Carvedilol 3.125 MG TABLET PO (15:06)
--- NOTE | 2023-08-10 15:43 | CHAPLAIN ---
Type of Pastoral Visit _x__ Initial Visit ___ Follow-up Visit ___ On-call Visit ___ General Patient Visit ___ Spiritual Assessment ___ Family Conference ___ Bereavement ___ Rapid Response ___ Code Blue ___ Other (describe below) Pastoral Care Referral From _x__ Patient ___ Family ___ Nurse ___ Physician ___ Kosher Dietary Service Supervisor ___ Steam Engineer ___ Other (describe below) Sacrament/Intervention _x__ Active listening ___ Anointing ___ Oriental Orthodox ___ Bereavement ___ Communion ___ Lyndsey exploration ___ ___ Life review _x__ Prayer ___ Reconciliation ___ Sacrament of Sick _x__ Supportive presence ___ Wedding ___ Other (describe below) Pastoral Comments patient was sitting up in bed and had a late lunch on her tray; pt had a heart cath earlier and stated they there were no blockages or issues; pt has several family members in the room and all agree that things went well; pt has a baptist connection and would welcome a prayer for complete healing and wellness;
--- NOTE | 2023-08-10 17:00 | DCINST_ITS ---
Discharge Instructions Diet Discharge Diet: - (-DASH diet) Activity Discharge Activity: - (See post-cath instructions) Follow Up Care Test Results: Test results from this visit will be discussed in further detail at your follow- up appointment, if applicable. Discharge Plan Admission Admit Date/Time: 08/09/23 17:12 Primary Reason for Your Visit: Chest pain Attending Provider: Britney Man Primary Care Provider: Mouna Hooks Consulting Providers: Doe Sarah; Erica Gonzalez Instructions Patient Instructions: Cardiomyopathy Dc Additional Instructions / Restrictions: DISCHARGE INSTRUCTIONS PLEASE READ *Please take this with you to your next doctors appointment* -You will be discharged on Coreg 3.125 mg twice daily -You will need to follow-up with cardiology on discharge, please call to schedule hospital follow-up appointment. Additionally you will need a repeat echocardiogram in 3 months which can be set up through the cardiology office or your primary care physician's office -Unless your job involves lifting you may return to normal activities within 2 days -Please take your medications as prescribed, do not skip doses -Check your incisions every day for signs of infection which would include redness, swelling, leaking. It is normal to have a small bruise or bump where the catheter was placed but a bruise that is getting larger is not normal. Please tell your healthcare team about this. Please proceed to the emergency de partment if you have uncontrollable bleeding from the site. -Please call your primary care provider's office upon discharge to schedule a hospital follow up within 1 week. -For any concerning signs or symptoms please call 911 or proceed to the nearest emergency department Discharge Orders/Prescriptions Prescriptions: New carvedilol 3.125 mg Tablet 3.125 mg PO BID 30 Days Qty: 60 0RF Referrals / Follow Up: Mouna Hooks MD [Primary Care Provider] - Within 1 Week Karmen Figueroa PA [Med Staff - Adv Practice Prof] - (Please follow-up with cardiology upon discharge, please call to schedule hospital follow-up appointment) Disposition Disposition (needs filled in before D/C Order can be placed): Home, Self Care
--- NOTE | 2023-08-10 17:02 | PCM.DC.SUM ---
Providers Date of Admission: 08/09/23 Date of Discharge: 08/10/23 Primary Care Physician: Dr. Mouna Hooks MD Consultations 08/09/23 17:56 Consult: Cardiology Routine Consulting Provider: Doe Sarah Reason for Consult: Chest Pain, NSTEMI EMERGENT Consult: No MD Notified: Yes Date Notified: 08/09/23 Time Notified: 17:12 Method of Notification: Text Reason For Visit: CHEST PAIN, NSTEMI Diagnosis Discharge Diagnosis (1) Non-ST elevated myocardial infarction (non-STEMI): Status: Acute Code(s): I21.4 - Non-ST elevation (NSTEMI) myocardial infarction (2) Chest pain: Status: Acute Code(s): R07.9 - Chest pain, unspecified Plan #NSTEMI type II-likely secondary to an episode of Takotsubo cardiomyopathy #History of breast cancer invasive ductal carcinoma status postchemotherapy and right mastectomy #Ejection fraction 40 to 45% Medications at Discharge Home Medications carvedilol 3.125 mg tablet 3.125 mg PO BID 30 days #60 tabs 08/10/23 Hospital Course Procedures Cardiac catheterization and Transthoracic echo Summary of Care Provided Minutes Spent on Discharge: 31 Hospital Course: The patient is a 48 y/o F w/ PMHx: Breast CA (Invasive ductal carcinoma) s/p chemotherapy and R mastectomy who presents to the [facility] ED on 08/09/23 with chest pain. Troponin 169 initially and up trended to 4643. Patient was on a heparin drip and was taken for heart cath but no stenting was required. It was felt that given her EF of 40 to 45% that this was likely an episode of Takotsubo cardiomyopathy. She was started on Coreg 3.125 mg twice daily and tolerated this well. Patient will follow with cardiology on outpatient basis and will likely have Entresto added to regimen. Physical Exam Narrative General: Alert, oriented, no apparent distress HEENT: Atraumatic, normocephalic Eyes: Anicteric, normal conjunctiva, extraocular movements grossly intact Neck: Supple Respiratory: Clear to auscultation bilaterally, normal respiratory effort Cardiovascular: Regular rate and rhythm GI: Soft, nontender, nondistended Extremities: No edema Musculoskeletal: Moving all extremities Neuro: No overt focal neurological deficits Skin: No rashes appreciated Psych: Cooperative Weight / BMI Weight Weight: 60.2 kg Body Mass Index (BMI) 21.4 ABG / Lab / Microbiology Data 08/10/23 05:00 08/10/23 05:00 Laboratory: Laboratory Results - last 24 hr 08/09/23 16:09: PT 13.1, INR 1.0, APTT 24.9, Magnesium 2.5 08/09/23 18:23: Troponin I High Sens 1868 H* 08/09/23 22:57: APTT 61.5 H, Troponin I High Sens 4643 H* 08/10/23 05:00: WBC 5.1, RBC 3.81 L, Hgb 12.1, Hct 37.1, MCV 97.4, MCH 31.8, MCHC 32.6, RDW Std Deviation 49.2 H, RDW Coeff of Ken 13.7, Plt Count 176, MPV 10.0, Immature Gran % (Auto) 0.200, Neut % (Auto) 54.4, Lymph % (Auto) 34.5, [place] % (Auto) 6.9, Eos % (Auto) 3.6, Baso % (Auto) 0.4, Absolute Neuts (auto) 2.8, Absolute Lymphs (auto) 1.75, Nucleated RBC % 0, APTT 57.8 H, Sodium 142, Potassium 3.9, Chloride 111 H, Carbon Dioxide 26.0, Anion Gap 5, BUN 15, Creatinine 0.64, Estim Creat Clear Calc 92.80, Est GFR (MDRD) Af Amer 127, Est GFR (MDRD) Non-Af 105, BUN/Creatinine Ratio 23.5 H, Glucose 91, Hemoglobin A1c 5.5, Calcium 8.1 L, Total Bilirubin 0.70, AST 38 H, ALT 33, Alkaline Phosphatase 80, Total Protein 6.0 L, Albumin 3.1 L, Globulin 2.9, Albumin/Globulin Ratio 1.1, Triglycerides 33, Cholesterol 195, LDL Cholesterol 65, VLDL Cholesterol 7, HDL Cholesterol 123 08/10/23 10:45: APTT 55.2 H Radiography Diagnostic Testing: Radiology Impression Echocardiogram 08/09/23 17:56 Interpretation Summary The estimated ejection fraction is 40-45 %. Apicaaal Hypokinesia No prior echp tp compare Ordering Physician: Erica Gonzalez Performed By: Deny Elmore RCS D/C Instructions Discharge Diet: - (-DASH diet) Meaningful Use Info Meaningful Use Diagnoses (Choose all that apply): None applicable Discharge Plan Admission Admit Date/Time: 08/09/23 17:12 Primary Reason for Your Visit: Chest pain Attending Provider: Britney Man Primary Care Provider: Mouna Hooks Consulting Providers: Doe Sarah; Erica Gonzalez Instructions Patient Instructions: Cardiomyopathy Dc Additional Instructions / Restrictions: DISCHARGE INSTRUCTIONS PLEASE READ *Please take this with you to your next doctors appointment* -You will be discharged on Coreg 3.125 mg twice daily -You will need to follow-up with cardiology on discharge, please call to schedule hospital follow-up appointment. Additionally you will need a repeat echocardiogram in 3 months which can be set up through the cardiology office or your primary care physician's office -Unless your job involves lifting you may return to normal activities within 2 days -Please take your medications as prescribed, do not skip doses -Check your incisions every day for signs of infection which would include redness, swelling, leaking. It is normal to have a small bruise or bump where the catheter was placed but a bruise that is getting larger is not normal. Please tell your healthcare team about this. Please proceed to the emergency department if you have uncontrollable bleeding from the site. -Please call your primary care provider's office upon discharge to schedule a hospital follow up within 1 week. -For any concerning signs or symptoms please call 911 or proceed to the nearest emergency department Discharge Orders/Prescriptions Prescriptions: New carvedilol 3.125 mg Tablet 3.125 mg PO BID 30 Days Qty: 60 0RF Referrals / Follow Up: Mouna Hooks MD [Primary Care Provider] - Within 1 Week Karmen Figueroa PA [Med Staff - [facility] Practice Prof] - (Please follow-up with cardiology upon discharge, please call to schedule hospital follow-up appointment) Disposition Disposition (needs filled in before D/C Order can be placed): Home, Self Care Charges/Coding Visit Charges Inpatient E&M: 20698 Disch Hosp >30min
== END 2023-08-10 19:00 | disposition home or self-care (01) ==
LOC: ED 17:10 → PCU 08-10 07:09
PROVIDERS: Admitting Provider Family Medicine; Emergency Provider Emergency Medicine; PCP Family Medicine; Visit Provider Internal Medicine
DX: I21.4 Non-ST elevation (NSTEMI) myocardial infarction (principal); R03.0 Elevated blood-pressure reading, without diagnosis of hypertension; R73.9 Hyperglycemia, unspecified; Z92.21 Personal history of antineoplastic chemotherapy; Z85.3 Personal history of malignant neoplasm of breast
CPT/HCPCS: 99285; 36415; 71045; 80048; 80053; 80061; 83036; 83735; 84484; 85025; 85379; 85610; 85730; 93005; 93306; 93458; 94668; 96365; 96366; 96376; 99152; 99153; 99221; J7030; Q9967; A4216; C1769; C1894; G0378

== ENCOUNTER → 2023-11-19 | Outpatient (CLI) | payer OTHER, SELFPAY ==
--- NOTE | 2023-11-19 08:51 | ECHOL_ITS ---
Reason For Study: Non-Isch CMP, Assess LV function Procedure This was a limited 2D transthoracic echocardiogram. Myocardial strain analysis was performed in this exam to aid in the assessment of cardiac function. Exam performed in department. Left Ventricle Normal LV size. Left ventricular systolic function is normal. The estimated ejection fraction is 60 %. No regional wall motion abnormalities noted. Right Ventricle Normal RV size. Normal systolic function. Atria Normal left atrium. Normal right atrium. Mitral Valve Normal mitral valve. Tricuspid Valve Normal tricuspid valve. Aortic Valve Trisinus/trileaflet aortic valve. Pulmonic Valve Normal pulmonic valve. Great Vessels Normal aortic root. The pulmonary artery is normal size. Normal inferior vena cava. Pericardium/Pleural No pericardial effusion. MMode/2D Measurements & Calculations LVIDd: 4.7 cm IVSd: 0.78 cm Ao root diam: 3.1 cm LVIDs: 3.1 cm LVPWd: 0.99 cm RVDd: 3.4 cm FS: 34.1 % LAV(MOD-bp): 43.1 ml LVAd ap4: 26.6 cm2 LVAd ap2: 26.6 cm2 LAV(MOD-bp) Indexed: 26.6 ml/m2 LVLd ap4: 7.9 cm LVLd ap2: 8.4 cm LAV(MOD-sp2): 48.9 ml EDV(MOD-sp4): 76.9 ml EDV(MOD-sp2): 71.5 ml LAV(MOD-sp4): 36.7 ml EDV(sp4-el): 76.8 ml EDV(sp2-el): 71.7 ml LVAs ap4: 15.7 cm2 LVAs ap2: 14.9 cm2 LVLs ap4: 6.7 cm LVLs ap2: 6.6 cm ESV(MOD-sp4): 31.2 ml ESV(MOD-sp2): 29.2 ml ESV(sp4-el): 31.2 ml ESV(sp2-el): 28.7 ml EF(MOD-sp4): 59.4 % EF(MOD-sp2): 59.1 % EF(sp4-el): 59.3 % SV(MOD-sp4): 45.7 ml SV(MOD-sp2): 42.3 ml SV(sp4-el): 45.6 ml LA dimension(2D): 3.4 cm LA A4 area: 15.1 cm2 RA A4 area: 13.8 cm2 ECHO/Echo, Limited Study Interpretation Summary Normal LV size. Left ventricular systolic function is normal. The estimated ejection fraction is 60 %. The global longitudinal strain is normal. The global longitudinal strain = -18. 7 % (normal). Compared to previous study, the left ventricular systolic function has improved .. Ordering Physician: Cecy Romero Referring Physician: Mouna Hooks Performed By: Miriam Ibarra RDCS
== END | disposition home or self-care (01) ==
PROVIDERS: PCP Family Medicine; Referring Provider Nurse Practitioner Gerontology; Visit Provider Nurse Practitioner Gerontology
DX: I50.20 Unspecified systolic (congestive) heart failure (principal)
CPT/HCPCS: 93308